=== PATIENT | male | born 1955 | race Caucasian/White ===

== ENCOUNTER 2018-01-23 13:36 | Day surgery (SDC) | payer BC, MEDICARE ==
[~2018-01-23 13:36] MED LIST: LIDOCAINE 2% INJ 100 MG/5 ML SDV (FOR ANES.) As Ordered; PROPOFOL 200 MG/20 ML VIAL As Ordered
[2018-01-23] MEDS: NS 1,000 ML IV (14:35)
[2018-01-23] MEDS ORDERED: fentaNYL 100 MCG/2 ML INJECTION (J3010) As Ordered (16:00)
== END 2018-01-23 16:51 | disposition home or self-care (01) ==
LOC: M OPP 13:36
DX: K22.70 Barrett's esophagus without dysplasia (principal); K22.8 Other specified diseases of esophagus; E78.00 Pure hypercholesterolemia, unspecified; K21.9 Gastro-esophageal reflux disease without esophagitis; M12.9 Arthropathy, unspecified; F17.210 Nicotine dependence, cigarettes, uncomplicated; Z79.891 Long term (current) use of opiate analgesic; Z79.899 Other long term (current) drug therapy; Z88.8 Allergy status to other drugs, medicaments and biological substances
CPT/HCPCS: 43239

== ENCOUNTER 2022-05-21 12:07 | Emergency (ER) | payer BC, MEDICARE ==
[~2022-05-21] VITALS: Ht 175.3 cm; Wt 60.4 kg
[~2022-05-21 12:07] MED LIST changes: +/AUGM875TA OR; +ACET300T48 PO; +ASPERCREME TOP; +BUTR10DI TD; +CYMB1CAP5 OR; +IBUP600T OR; +LIDO5DIS EX; -LIDOCAINE 2% INJ 100 MG/5 ML SDV (FOR ANES.) As Ordered; +NAPR-885 PO; +NAPR500T81 OR; +OMEP1CAP73 PO; +OMEP20TA7 OR; +OXYCONTIN OR; +PRED20TA OR; -PROPOFOL 200 MG/20 ML VIAL As Ordered; +SIMV20TA22 PO; +SIMV40TA2 OR; +TYLETAB3 OR; +VIT D 2000 OR; +[UNRECOGNIZED DRUG - OTHER] TOP
[2022-05-21] MEDS ORDERED: CLOP75TA2 PO (12:38)
[2022-05-21] MEDS ORDERED: DOCU100C16 PO (12:38)
[2022-05-21] MEDS ORDERED: BUPR10DI3 TD (12:38)
[2022-05-21] MEDS ORDERED: METO1TAB87 PO (12:38)
[2022-05-21] MEDS ORDERED: FAMO40TA3 PO (12:38)
[2022-05-21] MEDS ORDERED: ROSU5TAB5 PO (12:38)
[2022-05-21] MEDS ORDERED: ACET300T52 PO (12:38)
[2022-05-21] MEDS ORDERED: EZET10TA21 PO (12:38)
[2022-05-21] MEDS ORDERED: Super Beta Prostate (12:38)
[2022-05-21] MEDS ORDERED: LISI2.5T9 PO (12:38)
[2022-05-21] MEDS ORDERED: VITA-243 PO (12:40)
[2022-05-21] MEDS ORDERED: D200CAP3 PO (12:40)
[2022-05-21] MEDS ORDERED: FLUT1BLS5 PO (12:40)
[2022-05-21 13:14] LABS: LIPASE 30 U/L (12-53)
[2022-05-21 13:16] LABS: CPK CREATINE PHOSPHOKINASE 48 U/L (46-171)
[2022-05-21 13:25] LABS: BASO # 0.1 10^3/uL (0.0-0.2); BASO % 0.8 % (0.0-1.0); EOS # 0.3 10^3/uL (0.0-0.5); EOS % 3.9 % (0.0-3.0); HEMATOCRIT 44.1 % (42.0-52.0); HEMOGLOBIN 14.8 g/dl (13.5-17.5); LYMPH # 1.6 10^3/uL (1.5-5.0); LYMPH % 22.1 % (24.0-44.0); MEAN CORPUSCULAR HEMOGLOBIN 30.8 pg (27.0-33.0); MEAN CORPUSCULAR HGB CONC 33.6 g/dl (32.0-36.5); MEAN CORPUSCULAR VOLUME 91.7 fl (80.0-96.0); MONO # 0.4 10^3/uL (0.0-0.8); MONO % 6.1 % (2.0-8.0); NEUTROPHILS # 4.8 10^3/uL (1.5-8.5); NEUTROPHILS % 66.3 % (36.0-66.0); PLATELET COUNT, AUTOMATED 393 10^3/uL (150-450); RED BLOOD COUNT 4.81 10^6/uL (4.30-6.10); WHITE BLOOD COUNT 7.2 10^3/uL (4.0-10.0)
[2022-05-21 13:40] LABS: ALBUMIN 3.8 G/DL (3.2-5.2); ALKALINE PHOSPHATASE 87 U/L (46-116); ALT/SGPT 20 U/L (7.0-40); AST/SGOT 16 U/L (<34); BILIRUBIN,DIRECT 0.1 MG/DL (<0.4); BILIRUBIN,TOTAL 0.4 MG/DL (0.3-1.2); BLOOD UREA NITROGEN 19 MG/DL (9-23); CALCIUM LEVEL 10.4 MG/DL (8.3-10.6); CARBON DIOXIDE LEVEL 28 MMOL/L (20-31); CHLORIDE LEVEL 99 MMOL/L (98-107); CK-MB VALUE MASS 1.3 NG/ML (<3.6); GLOMERULAR FILTRATION RATE > 60.0 (>49); GLUCOSE, FASTING 110 MG/DL (74-106); SODIUM LEVEL 132 MMOL/L (136-145)
[2022-05-21 13:44] LABS: RSV AMPLIFICATION NEGATIVE (NEGATIVE)
[2022-05-21] MEDS ORDERED: ISOVUE-370 76% 100ML VIAL As Ordered ONE (14:23)
[2022-05-21 15:28] LABS: TOTAL PROTEIN 7.5 G/DL (5.7-8.2)
[2022-05-21 15:45] VITALS: BP 140/81
== END 2022-05-21 16:12 | disposition left against medical advice (07) ==
LOC: M ED 12:07
DX: I25.10 Atherosclerotic heart disease of native coronary artery without angina pectoris (principal); R07.9 Chest pain, unspecified; Z95.1 Presence of aortocoronary bypass graft; Z98.890 Other specified postprocedural states; I10 Essential (primary) hypertension; E78.5 Hyperlipidemia, unspecified; F17.200 Nicotine dependence, unspecified, uncomplicated; Z88.8 Allergy status to other drugs, medicaments and biological substances; Z79.899 Other long term (current) drug therapy; Z79.02 Long term (current) use of antithrombotics/antiplatelets; Z79.891 Long term (current) use of opiate analgesic
CPT/HCPCS: 71045; 71275; 80048; 80076; 82550; 82553; 83690; 83880; 84484; 85025; 87631; 93005; 93041; 94760; 99285; Q9967